=== PATIENT | female | born 1950 | race Caucasian/White ===

== ENCOUNTER 2018-06-05 00:29 | Emergency (ER) | payer BC ==
[~2018-06-05] VITALS: Ht 160 cm; Wt 72.0 kg
[2018-06-05] MEDS ORDERED: DIPHENHYDRAMINE 50 MG/ML, 1ML ONE (00:56)
[2018-06-05] MEDS ORDERED: methylPREDNISolone SOD SUCC 125 MG/2 ML ONE (00:56)
[2018-06-05] MEDS ORDERED: DIPHENHYDRAMINE 50 MG/ML, 1ML IVPush ONE (01:00)
[2018-06-05] MEDS ORDERED: methylPREDNISolone SOD SUCC 125 MG/2 ML IVP ONE (01:00)
[2018-06-05] MEDS ORDERED: PLEASE ENTER ALLERGIES MC SCH (01:00)
[2018-06-05] MEDS ORDERED: ALBUTEROL/IPRATROPIUM 2.5MG/0.5MG, 3 ML ONE (01:12)
[2018-06-05] MEDS ORDERED: SODIUM CHLORIDE 0.9% 1,000ML IVBOLUS ONE (01:30)
[2018-06-05 01:50] LABS: BASOPHILS # (AUTO) 0.02 x10^3/uL (0-0.1); BASOPHILS % (AUTO) 0 % (0-1); EOSINOPHILS # (AUTO) 0.14 x10^3/uL (0-0.4); EOSINOPHILS % (AUTO) 2 % (1-7); LYMPHOCYTES # (AUTO) 1.57 x10^3/uL (1-3.4); LYMPHOCYTES % (AUTO) 18 % (22-44); MD NO; MEAN CORPUSCULAR HEMOGLOBIN 30.1 pg (27.0-34.8); MEAN CORPUSCULAR HGB CONC 32.4 g/dL (32.4-35.8); MEAN CORPUSCULAR VOLUME 93.1 fL (80-100); MEAN PLATELET VOLUME 7.6 fL (7.4-10.4); MONOCYTES # (AUTO) 0.56 x10^3/uL (0.2-0.8); MONOCYTES % (AUTO) 7 % (2-9); NEUTROPHILS # (AUTO) 6.29 x10^3/uL (1.8-6.8); NEUTROPHILS % (AUTO) 73 % (42-75); PLATELET COUNT 231 x10^3/uL (130-400); RED BLOOD COUNT 3.66 x10^6/uL (3.82-5.3); RED CELL DISTRIBUTION WIDTH 16.2 % (9.6-15.2)
[2018-06-05 01:59] LABS: ANION GAP 7 mmol/L (5-15); CALCIUM 8.3 mg/dL (8.5-10.1); CHLORIDE 104 mmol/L (98-107)
[2018-06-05 02:03] LABS: TROPONIN I < 0.015 ng/mL (0.000-0.045)
[2018-06-05 02:09] VITALS: BP 126/68
== END 2018-06-05 02:11 | disposition left against medical advice (07) ==
LOC: ED 02:00
DX: T78.3XXA Angioneurotic edema, initial encounter (principal); R09.02 Hypoxemia; J44.1 Chronic obstructive pulmonary disease with (acute) exacerbation
CPT/HCPCS: 36415; 71045; 80048; 83605; 84484; 85025; 87040; 93005; 94640; 96374; 96375; 99285; J1200; J2930; J7030